=== PATIENT | female | born 1960 ===

== ENCOUNTER 2017-09-18 07:04 | Day surgery (SDC) | payer OTHER ==
[2017-09-18] MEDS ORDERED: ULTRACET PO (11:21)
[2017-09-18] MEDS ORDERED: MACROBID 100 M100 MG PO (11:22)
== END 2017-09-18 15:15 | disposition home or self-care (01) ==
LOC: CIR.AMB 07:04
DX: N39.3 Stress incontinence (female) (male) (principal)
CPT/HCPCS: 57288; C1771

== ENCOUNTER 2021-08-25 06:18 | Day surgery (SDC) | payer OTHER ==
[~2021-08-25 06:18] MED LIST: ANASTROZOLE1 MG PO; MACROBID 100 M100 MG PO; SINGULAIR10 MG PO; ULTRACET PO; ZYRTEC10 M3 PO
== END 2021-08-25 19:20 | disposition home or self-care (01) ==
LOC: CIR.AMB 06:18
PROVIDERS: ATTEND Surgery
DX: D05.02 Lobular carcinoma in situ of left breast (principal); Z20.822 Contact with and (suspected) exposure to COVID-19

== ENCOUNTER 2022-03-13 12:09 | Outpatient (CLI) | payer OTHER | END 2022-03-13 12:19 | disposition home or self-care (01) | LOC: SONOGRAMA 12:09 | PROVIDERS: ATTEND Surgery | DX: C50.412 Malignant neoplasm of upper-outer quadrant of left female breast (principal); N60.12 Diffuse cystic mastopathy of left breast ==

== ENCOUNTER 2022-03-17 14:16 | Outpatient (CLI) | payer OTHER | END 2022-03-17 14:20 | disposition home or self-care (01) | LOC: LAB 14:16 | PROVIDERS: ATTEND Surgery | DX: N61.1 Abscess of the breast and nipple (principal) ==

== ENCOUNTER 2024-10-13 12:45 | Inpatient (IN) | payer OTHER ==
[~2024-10-13] VITALS: Ht 170.2 cm; Wt 68.0 kg
[2024-10-13] MEDS ORDERED: INDERAL LA80 MG PO (12:48)
[2024-10-13] MEDS ORDERED: ROSUVASTATIN CAL5 MG PO (12:49)
[2024-10-13 12:54] VITALS: BP 160/90
[2024-10-21] MEDS ORDERED: METHYLPREDNISOLONE ACETATE 80 MG/ML VIAL ONE (06:40)
[2024-10-21] MEDS ORDERED: METHYLPREDNISOLONE SOD SUCC 125 MG VIAL ONE (06:40)
[2024-10-21] MEDS ORDERED: CEFAZOLIN SODIUM 1,000 MG VIAL ONE (06:41)
[2024-10-21] MEDS ORDERED: VANCOMYCIN HCL 1,000 MG VIAL ONE (06:41)
[2024-10-21] MEDS ORDERED: PERCOCET 5-3251 EACH PO (07:08)
[2024-10-21] MEDS ORDERED: MEDROLPACK PO (07:09)
[2024-10-21] MEDS ORDERED: ZOFRAN8 MG PO (07:09)
[2024-10-21] MEDS ORDERED: COLACE100 MG PO (07:09)
[2024-10-21] MEDS ORDERED: ENALAPRILAT DIHYDRATE 1.25 MG/ML VIAL IV PRN (07:15)
[2024-10-21] MEDS ORDERED: PROMETHAZINE HCL 50 MG/ML AMPUL IM PRN (07:15)
[2024-10-21] MEDS ORDERED: 0.9 % SODIUM CHLORIDE 1,000 ML IV SCH (07:15)
[2024-10-21] MEDS ORDERED: HEMOSTATIC MATRIX WITH THROMBIN KIT TOP ONE (07:23)
[2024-10-21] MEDS ORDERED: ISOPROPYL ALCOHOL 30 ML OUNCE TOP ONE (08:30)
[2024-10-21] MEDS ORDERED: MORPHINE SULFATE 4 MG/ML CARTRIDGE IV SCH (09:00)
[2024-10-21] MEDS ORDERED: TAMSULOSIN HCL 0.4 MG CAP PO SCH (09:00)
[2024-10-21] MEDS ORDERED: FAMOtidine 20 MG TABLET PO SCH (09:00)
[2024-10-21] MEDS ORDERED: ENALAPRILAT DIHYDRATE 1.25 MG/ML VIAL IV ONE ×2 (12:18→12:33)
[2024-10-21] MEDS ORDERED: DOCUSATE SODIUM 100MG CAP PO SCH (13:00)
[2024-10-21 13:26] VITALS: BP 160/90; O2SAT 100
[2024-10-21 16:43] VITALS: BP 140/80; O2SAT 100
[2024-10-21] MEDS ORDERED: CEFAZOLIN SODIUM 1,000 MG in 0.9 % SODIUM CHLORIDE 50 ML IV SCH (17:00)
[2024-10-21] MEDS ORDERED: METHYLPREDNISOLONE SOD SUCC 125 MG VIAL IV SCH (17:00)
[2024-10-21] MEDS ORDERED: ACETAMINOPHEN 500 MG GEL..CAP PO SCH (20:00)
[2024-10-21 20:50] VITALS: BP 135/70; O2SAT 99
[2024-10-21] MEDS ORDERED: VANCOMYCIN HCL 1,000 MG VIAL IV SCH (21:00)
[2024-10-21 23:30] VITALS: BP 124/77; O2SAT 99
[2024-10-22] MEDS ORDERED: SODIUM CHLORIDE 0.45 % 1,000 ML IV SCH
[2024-10-22 00:08] VITALS: BP 124/77; O2SAT 100
[2024-10-22 04:30] VITALS: BP 137/85; O2SAT 98
[2024-10-22] MEDS ORDERED: OxyCODONE HCL 5 MG TABLET (ROXICODONE) PO PRN (06:01)
[2024-10-22 08:43] VITALS: BP 136/79; O2SAT 99
== END 2024-10-22 10:34 | DRG 473 ==
LOC: O/R 10-21 05:13 → SURH 10-21 07:00 → PED 10-21 11:34 → SURH 10-21 12:45 → PED 10-22 10:34
PROVIDERS: ADMIT Orthopaedic Surgery Orthopaedic Surgery of the Spine; ATTEND Orthopaedic Surgery Orthopaedic Surgery of the Spine
PROC: 0RB30ZZ Excision of Cervical Vertebral Disc, Open Approach (ICD-10-PCS; 2024-10-21)
PROC: 0PB40ZZ Excision of Thoracic Vertebra, Open Approach (ICD-10-PCS; 2024-10-21)
PROC: 07DS0ZZ Extraction of Vertebral Bone Marrow, Open Approach (ICD-10-PCS; 2024-10-21)
PROC: 4A1104G Monitoring of Peripheral Nervous Electrical Activity, Intraoperative, Open Approach (ICD-10-PCS; 2024-10-21)
PROC: 0RG10A0 Fusion of Cervical Vertebral Joint with Interbody Fusion Device, Anterior Approach, Anterior Column, Open Approach (ICD-10-PCS; principal; 2024-10-21 07:00)
DX: M50.01 Cervical disc disorder with myelopathy, high cervical region (principal); M48.02 Spinal stenosis, cervical region; I10 Essential (primary) hypertension

== ENCOUNTER 2025-05-21 07:47 | Outpatient (CLI) | payer OTHER ==
[~2025-05-21 07:47] MED LIST changes: +COLACE100 MG PO; +INDERAL LA80 MG PO; +MEDROLPACK PO; +PERCOCET 5-3251 EACH PO; +ROSUVASTATIN CAL5 MG PO; +ZOFRAN8 MG PO
== END 2025-05-21 07:50 | disposition home or self-care (01) ==
LOC: SONOGRAMA 07:47
PROVIDERS: ATTEND Pathology Anatomic Pathology & Clinical Pathology
DX: D34 Benign neoplasm of thyroid gland (principal); E07.89 Other specified disorders of thyroid; E04.2 Nontoxic multinodular goiter

== ENCOUNTER 2025-06-23 12:15 | Inpatient (IN) | payer OTHER ==
[~2025-06-23] VITALS: Ht 61 cm; Wt 71.2 kg
[2025-06-30] MEDS ORDERED: AMOX-CLAV 875-1 EACH PO (07:07)
[2025-06-30] MEDS ORDERED: MEDROLPACK PO (07:07)
[2025-06-30] MEDS ORDERED: PERCOCET 5-3251 EACH PO (07:07)
[2025-06-30] MEDS ORDERED: GABAPENTIN100 M2 PO (07:08)
[2025-06-30] MEDS ORDERED: COLACE100 MG PO (07:08)
[2025-06-30] MEDS ORDERED: ZOFRAN8 MG PO (07:08)
[2025-06-30] MEDS ORDERED: NEURONTIN800 MG PO (07:09)
[2025-06-30] MEDS ORDERED: 0.9 % SODIUM CHLORIDE 1,000 ML IV SCH (07:30)
[2025-06-30] MEDS ORDERED: PROMETHAZINE HCL 50 MG/ML AMPUL IM PRN (07:30)
[2025-06-30] MEDS ORDERED: ENALAPRILAT DIHYDRATE 1.25 MG/ML VIAL IV PRN (07:30)
[2025-06-30] MEDS ORDERED: METHYLPREDNISOLONE SOD SUCC 125 MG VIAL IV ONE ×2 (08:30)
[2025-06-30] MEDS ORDERED: VANCOMYCIN HCL 1,000 MG VIAL IV ONE (08:30)
[2025-06-30] MEDS ORDERED: VANCOMYCIN HCL 1,000 MG VIAL IR ONE ×2 (08:30→08:45)
[2025-06-30] MEDS ORDERED: METHYLPREDNISOLONE ACETATE 80 MG/ML VIAL IM ONE ×2 (08:45)
[2025-06-30] MEDS ORDERED: CEFAZOLIN SODIUM 1,000 MG VIAL IV ONE (08:45)
[2025-06-30] MEDS ORDERED: DOCUSATE SODIUM 100MG CAP PO SCH (09:00)
[2025-06-30] MEDS ORDERED: METHYLPREDNISOLONE SOD SUCC 125 MG VIAL IV SCH (09:00)
[2025-06-30] MEDS ORDERED: CEFAZOLIN SODIUM 1,000 MG in 0.9 % SODIUM CHLORIDE 50 ML IV SCH (09:00)
[2025-06-30] MEDS ORDERED: MORPHINE SULFATE 4 MG/ML CARTRIDGE IV SCH (09:00)
[2025-06-30] MEDS ORDERED: VANCOMYCIN HCL 1,000 MG VIAL IV SCH (09:00)
[2025-06-30] MEDS ORDERED: TAMSULOSIN HCL 0.4 MG CAP PO SCH (09:00)
[2025-06-30 16:00] VITALS: BP 146/84; O2SAT 95
[2025-06-30] MEDS ORDERED: CEFAZOLIN SODIUM 1,000 MG VIAL ONE (16:50)
[2025-06-30 19:11] VITALS: O2SAT 97
[2025-06-30] MEDS ORDERED: VANCOMYCIN HCL 1,000 MG VIAL ONE (19:59)
[2025-06-30] MEDS ORDERED: ACETAMINOPHEN 500 MG GEL..CAP PO SCH (20:00)
[2025-06-30] MEDS ORDERED: GABAPENTIN 800 MG TABLET PO SCH (21:00)
[2025-06-30 23:48] VITALS: BP 116/78; O2SAT 98
[2025-07-01] VITALS (7 sets, daily range): BP systolic 127–150; BP diastolic 73–79; O2SAT 96–100
[2025-07-01] MEDS ORDERED: SODIUM CHLORIDE 0.45 % 1,000 ML IV SCH
[2025-07-01] MEDS ORDERED: OxyCODONE HCL 5 MG TABLET (ROXICODONE) PO PRN (06:01)
[2025-07-01] MEDS ORDERED: VANCOMYCIN HCL 1,000 MG VIAL ONE (06:42)
[2025-07-01 06:51] LABS: BASO % 0.1 % (0.1-1.2); EOS # 0.00 (0.04-0.54); EOS % 0.0 % (0.7-7.0); LYMPH # 0.53 (1.18-3.74); LYMPH % 3.8 % (19.3-53.1); MEAN PLATELET VOLUME 9.90 fl (9.4-12.4); MONO # 0.40 (0.24-0.82); MONO % 2.9 % (4.7-12.5); NEUT # 13.00 (1.56-6.13); NEUT % 92.8 % (34.0-71.1); RED CELL DISTRIBUTION WIDTH 12.5 % (11.6-14.4)
[2025-07-01 06:57] LABS: BUN CREA RATIO 20.0 (7.0-25.0); CREATININE SERUM 0.64 mg/dL (0.55-1.02); GFR 93.72; GLUCOSE FASTING 160.0 mg/dL (65-100); OSMOLALITY SERUM 285.0 MOSM/KG (275-295)
[2025-07-01] MEDS ORDERED: ROSUVASTATIN CALCIUM 10 MG TABLET PO SCH (09:00)
[2025-07-02] VITALS: O2SAT 99
[2025-07-02 00:39] VITALS: BP 146/80; O2SAT 99
[2025-07-02 05:01] VITALS: O2SAT 99
[2025-07-02 08:00] VITALS: BP 110/58; O2SAT 99
[2025-07-02 09:25] VITALS: O2SAT 90
[2025-07-02 13:31] VITALS: O2SAT 95
== END 2025-07-02 16:51 | disposition home or self-care (01) | DRG 428 ==
LOC: O/R 06-30 06:00 → SURH 06-30 06:00
PROVIDERS: ADMIT Orthopaedic Surgery Orthopaedic Surgery of the Spine; ATTEND Orthopaedic Surgery Orthopaedic Surgery of the Spine
PROC: 0SG1071 Fusion of 2 or more Lumbar Vertebral Joints with Autologous Tissue Substitute, Posterior Approach, Posterior Column, Open Approach (ICD-10-PCS; 2025-06-30)
PROC: 0ST20ZZ Resection of Lumbar Vertebral Disc, Open Approach (ICD-10-PCS; 2025-06-30)
PROC: 07DR0ZZ Extraction of Iliac Bone Marrow, Open Approach (ICD-10-PCS; 2025-06-30)
PROC: 4A1104G Monitoring of Peripheral Nervous Electrical Activity, Intraoperative, Open Approach (ICD-10-PCS; 2025-06-30)
PROC: 4A12X4Z Monitoring of Cardiac Electrical Activity, External Approach (ICD-10-PCS; 2025-06-30)
PROC: XRGC0R7 Fusion of 2 or more Lumbar Vertebral Joints using Custom-Made Anatomically Designed Interbody Fusion Device, Open Approach, New Technology Group 7 (ICD-10-PCS; principal; 2025-06-30 07:00)
DX: M48.062 Spinal stenosis, lumbar region with neurogenic claudication (principal); M51.369 Other intervertebral disc degeneration, lumbar region without mention of lumbar back pain or lower extremity pain; I10 Essential (primary) hypertension